=== PATIENT | male | born 1990 | race Caucasian/White ===

== ENCOUNTER 2018-12-02 19:23 | Emergency (ER) | payer SELFPAY ==
[~2018-12-02] VITALS: Ht 185.4 cm; Wt 83.9 kg
--- NOTE | 2018-12-02 19:52 | NUR ---
2 KWABENA APPLIED TO LACERATION BY Buddy LOPEZ ENP.
[2018-12-02 19:57] VITALS: BP 140/87
[2018-12-02] MEDS ORDERED: BACITRACIN ZINC 0.9GM TP ONE ×2 (20:00→20:15)
[2018-12-02] MEDS ORDERED: TETANUS/DIPHTHERIA TOX ADULT 0.5 ML SYR IM ONE (20:00)
[2018-12-02] MEDS ORDERED: TETANUS/DIPHTHERIA TOX ADULT 0.5 ML SYR ONE (20:01)
== END 2018-12-02 20:07 | disposition home or self-care (01) ==
LOC: ER 19:23
DX: S01.01XA Laceration without foreign body of scalp, initial encounter (principal); S00.83XA Contusion of other part of head, initial encounter; W22.8XXA Striking against or struck by other objects, initial encounter; Y92.008 Other place in unspecified non-institutional (private) residence as the place of occurrence of the external cause
CPT/HCPCS: 90471; 90714; 99282